=== PATIENT | male | born 1980 | race African-American/Black ===

== ENCOUNTER 2023-08-02 08:11 | Emergency (ER) | payer MEDICAID, SELFPAY ==
--- NOTE | ~2023-08-02 | XR_ITS ---
EXAMINATION: XR ANKLE, LEFT CLINICAL INFORMATION: Fall COMPARISON: None available. TECHNIQUE: AP, lateral, and mortise views of the left ankle. FINDINGS: No fracture. Alignment is anatomic. No erosions. Joint spaces are maintained. Tiny posterior plantar calcaneal spur and Achilles enthesophyte are seen. There is mild soft tissue swelling about the ankle. XR/XR ankle LT min 3V IMPRESSION: No acute bony abnormality.
[2023-08-02 08:14] VITALS: BP 159/98; PULSE 91; RESP 16; TEMP 36.8; O2SAT 97; BMI 25.6
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
[2023-08-02] MEDS: NaPROXEN 500 MG TABLET PO (11:31)
[2023-08-02 11:33] VITALS: BP 148/91; PULSE 68; RESP 16; TEMP 37.3; O2SAT 99
== END 2023-08-02 11:35 | disposition home or self-care (01) ==
PROVIDERS: Emergency Provider Emergency Medicine Emergency Medical Services
DX: S93.402A Sprain of unspecified ligament of left ankle, initial encounter (principal); V18.0XXA Pedal cycle driver injured in noncollision transport accident in nontraffic accident, initial encounter; Y93.55 Activity, bike riding; Y92.9 Unspecified place or not applicable; Y99.9 Unspecified external cause status
CPT/HCPCS: 73610; 99283